=== PATIENT | male | born 1970 | race Caucasian/White ===

== ENCOUNTER 2016-11-04 16:46 | Emergency (ER) | payer SELFPAY ==
[2016-11-04] MEDS ORDERED: Aspirin Low Dose CHEW TAB* 81 MG PO ONE (17:50)
[2016-11-04 18:46] LABS: Hematocrit 45 % (42-52); Hemoglobin 14.9 g/dl (14.0-18.0); Mean Corpuscular HGB Conc 33 g/dl (31-36); Mean Corpuscular Hemoglobin 23 pg (27-31); Mean Corpuscular Volume 71 fL (80-94); Mean Platelet Volume 8 um3 (7.4-10.4); Red Blood Count 6.38 10^6/ul (4.0-5.4); Red Cell Distribution Width 16 % (10.5-15); White Blood Count 7.3 10^3/ul (3.5-10.8)
[2016-11-04 18:48] LABS: Add Diff/Slide Review? Slide Review Added; Comments Flag Yes
[2016-11-04 19:06] LABS: ALT 34 U/L (7-52); Albumin 4.6 g/dL (3.2-5.2); Alkaline Phosphatase 47 U/L (34-104); Blood Urea Nitrogen 20 mg/dL (6-24); CO2 Carbon Dioxide 30 mmol/L (22-32); Calcium 9.8 mg/dL (8.6-10.3); Chloride 102 mmol/L (101-111); EGFR African American 97.8 (>60); Globulin 2.7 g/dL (2-4); Glucose 100 mg/dL (70-100); Sodium 138 mmol/L (133-145); Total Protein 7.3 g/dL (6.4-8.9)
[2016-11-04 19:33] LABS: Anion Gap 6 mmol/L (2-11)
[2016-11-04] MEDS ORDERED: Cyclobenzaprine TAB* 10 MG PO ONE (22:56)
--- NOTE | 2016-11-04 22:59 | ED ---
Golden Arriola Nikita, scribed for Jah Ryan MD on 11/04/16 at 2033 . Throat Pain/Nasal Congestion - HPI Summary HPI Summary: This patient is a 46 year old M presenting to ED with a chief complaint of R- sided neck pain since 2 weeks ago. 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 The next morning, he could hardly move it. Pt reports it may be a pinched nerve. The CC is described as radiating to back, R shoulder blade and R arm and fingers (tingling, spasms). The patient rates the pain 7/10 in severity. Symptoms aggravated by movement. Symptoms alleviated by rest and salt bath. - History of Current Complaint Chief Complaint: EDNeckComplaint Time Seen by Provider: 11/04/16 20:20 Hx Obtained From: Patient Onset/Duration: Sudden Onset - 2 weeks ago, Lasting Weeks, Still Present Severity: Moderate Associated Signs And Symptoms: Negative: Negative - R-sided neck pain, radiating to back, R shoulder blade and R arm and fingers (tingling, spasms) - Allergies/Home Medications Allergies/Adverse Reactions: Allergies Allergy/AdvReac Type Severity Reaction Status Date / Time No Known Allergies Allergy Verified 11/04/16 16:49 PMH/Surg Hx/FS Hx/Imm Hx Endocrine/Hematology History: Denies: Hx Diabetes Cardiovascular History: Denies: Hx Coronary Artery Disease, Hx Hypertension Infectious Disease History: No Infectious Disease History: Denies: Traveled Outside the [place] in Last 30 Days - Family History Known Family History: Negative: Cardiac Disease, Hypertension, Diabetes - Social History Alcohol Use: Occasionally Alcohol Amount: 4 beers every couple of weeks Hx Substance Use: No Hx Tobacco Use: No Review of Systems Positive: Other - R-sided neck pain Positive: Other - R-sided neck pain radiates to back, R shoulder blade and R arm and fingers (tingling, spasms) All Other Systems Reviewed And Are Negative: Yes Physical Exam - Summary Physical Exam Summary: General: well-appearing, no pain distress Skin: warm, color reflects adequate perfusion, dry Head: normal Eyes: EOMI, FATIMAH ENT: normal Neck: supple, tender in the neck laterally to the right side at level of C5-C7 Respiratory: CTA, breath sounds present Cardiovascular: RRR, good distal pulses, good capillary refill Abdomen: soft, nontender Bowel: present Musculoskeletal: normal, strength/ROM intact Neurological: normal, sensory/motor intact, A&O x3 Psychological: affect/mood appropriate Triage Information Reviewed: Yes Vital Signs On Initial Exam: Initial Vitals Temp Pulse Resp BP Pulse Ox 98 F 95 16 173/105 98 11/04/16 16:47 11/04/16 16:47 11/04/16 16:47 11/04/16 16:47 11/04/16 16:47 Vital Signs Reviewed: Yes Diagnostics - Vital Signs Vital Signs Temp Pulse Resp BP Pulse Ox 11/04/16 19:40 97 11/04/16 16:47 98 F 95 16 173/105 98 - Laboratory Lab Results: Lab Results 11/04/16 11/04/16 11/04/16 Range/Units 18:35 18:35 18:35 WBC 7.3 (3.5-10.8) 10^3/ul RBC 6.38 H (4.0-5.4) 10^6/ul Hgb 14.9 (14.0-18.0) g/dl Hct 45 (42-52) % MCV 71 L (80-94) fL MCH 23 L (27-31) pg MCHC 33 (31-36) g/dl RDW 16 H (10.5-15) % Plt Count 260 (150-450) 10^3/ul MPV 8 (7.4-10.4) um3 Neut % (Auto) 59.3 (38-83) % Lymph % (Auto) 28.5 (25-47) % [place] % (Auto) 6.2 (1-9) % Eos % (Auto) 5.0 (0-6) % Baso % (Auto) 1.0 (0-2) % Absolute Neuts (auto) 4.3 (1.5-7.7) 10^3/ul Absolute Lymphs (auto) 2.1 (1.0-4.8) 10^3/ul Absolute Monos (auto) 0.4 (0-0.8) 10^3/ul Absolute Eos (auto) 0.4 (0-0.6) 10^3/ul Absolute Basos (auto) 0.1 (0-0.2) 10^3/ul Absolute Nucleated RBC 0.01 10^3/ul Nucleated RBC % 0.1 Sodium 138 (133-145) mmol/L Potassium TNP Chloride 102 (101-111) mmol/L Carbon Dioxide 30 (22-32) mmol/L Anion Gap 6 (2-11) mmol/L BUN 20 (6-24) mg/dL Creatinine 1.05 (0.67-1.17) mg/dL Est GFR ( Amer) 97.8 (>60) Est GFR (Non-Af Amer) 76.0 (>60) BUN/Creatinine Ratio 19.0 (8-20) Glucose 100 (70-100) mg/dL Lactic Acid 1.2 (0.5-2.0) mmol/L Calcium 9.8 (8.6-10.3) mg/dL Total Bilirubin 0.40 (0.2-1.0) mg/dL AST TNP ALT 34 (7-52) U/L Alkaline Phosphatase 47 (34-104) U/L Troponin I 0.00 (<0.04) ng/mL Total Protein 7.3 (6.4-8.9) g/dL Albumin 4.6 (3.2-5.2) g/dL Globulin 2.7 (2-4) g/dL Albumin/Globulin Ratio 1.7 (1-3) Result Diagrams: 11/04/16 18:35 11/04/16 21:27 Lab Statement: Any lab studies that have been ordered have been reviewed, and results considered in the medical decision making process. - CT Neck/C-spine CT Interpretation Completed By: Radiologist - Mild to moderate degenerative disc disease and degenerative joint disease of the uncovertebral joints and facets throughout the cervical spine with mild multilevel spinal canal narrowing and mild flattening and deformity of the ventral aspect of the cervical cord at the C3-4, C5-6 and C6-7 levels with mild bilateral C3-4 neural foraminal narrowing and mild to moderate C5-6 and C6-7 Neural foraminal narrowing. If clinically indicated followup outpatient MRI cervical spine may be needed. ED physician has reviewed this radiology report and agrees. - EKG 1803 Cardiac Rate: NL - 63 bpm EKG Interpretation: Sinus arrhythmia, incomplete RBBB, probable normal early repolarization EENT Course/Dx - Course Assessment/Plan: This patient is a 46 year old M presenting to ED with a chief complaint of R-sided neck pain since 2 weeks ago. 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 The next morning, he could hardly move it. Pt reports it may be a pinched nerve. The CC is described as radiating to back, R shoulder blade and R arm and fingers (tingling, spasms). The patient rates the pain 7/10 in severity. Symptoms aggravated by movement. Symptoms alleviated by rest and salt bath. EKG reveals sinus arrhythmia, incomplete RBBB, and ST elevation: probable normal early repolarization pattern. C-spine CT reveals mild to moderate degenerative disc disease and degenerative joint disease of the uncovertebral joints and facets throughout the cervical spine with mild multilevel spinal canal narrowing and mild flattening and deformity of the ventral aspect of the cervical cord at the C3-4, C5-6 and C6-7 levels with mild bilateral C3-4 neural foraminal narrowing and mild to moderate C5-6 and C6-7 Neural foraminal narrowing. If clinically indicated followup outpatient MRI cervical spine may be needed. ED physician has reviewed this radiology report and agrees. In the ED course, pt was given ASA. Medications reviewed. BP noted and advised to follow up with PCP. DISCUSSED RESULTS WITH PATIENT. NO NEUROLOGIC DEFICIT AT THIS TIME. F/U PMD; RETURN IF WORSE. - Diagnoses Provider Diagnoses: Cervical radiculopathy, Neck pain, Degenerative cervical disc, Arthritis of neck Discharge - Discharge Plan Condition: Stable Disposition: HOME Prescriptions: Cyclobenzaprine TAB* [Flexeril 10 MG TAB*] 10 mg PO TID PRN #15 tab MDD 3 PRN Reason: Pain traMADol TAB* [Ultram*] 50 mg PO Q6HR PRN #20 tab MDD 4 PRN Reason: Pain Patient Education Materials: Cervical Disc Herniation (ED), Cervical Radiculopathy (ED), Acute Neck Pain (ED) Forms: *Work Release Referrals: Non Staff,Doctor [Primary Care Provider] - Additional Instructions: FOLLOW UP WITH YOUR DOCTOR. RETURN TO THE EMERGENCY DEPARTMENT FOR ANY WORSENING OF YOUR CONDITION; WEAKNESS , NUMBNESS, PAIN OR QUESTIONS OR CONCERNS. The documentation as recorded by the Golden taylor Nikita accurately reflects the service I personally performed and the decisions made by me, Jah Ryan MD.
[2016-11-04 23:12] VITALS: BP 168/79
--- NOTE | 2016-11-05 07:37 | RAD ---
HISTORY: Right lower neck pain radiating to right scapula and arm COMPARISONS: None TECHNIQUE: Multiple contiguous axial CT scans were obtained of the cervical spine without intravenous contrast, with coronal and sagittal multiplanar reformations. FINDINGS: BRAIN: The visualized brain is unremarkable CENTRAL CANAL: Evaluation of the central canal is limited on CT technique; however, there is no obvious canalicular mass or epidural hemorrhage. ALIGNMENT: The alignment is normal, without subluxation or dislocation. VERTEBRAL BODIES: There is mild anterolateral marginal osteophyte formation. JOINTS: There is facet and uncovertebral osteoarthritis. MUSCULATURE: Unremarkable INTERVERTEBRAL DISCS: There is diffuse loss of intervertebral disc height. AXIAL IMAGES: C2-C3: There is no osseous neural foraminal narrowing or central canal stenosis. C3-C4: There is bilateral uncovertebral hypertrophy. There is mild left neural foraminal narrowing. There is no osseous central canal stenosis. C4-C5: There is no osseous neural foraminal narrowing or central canal stenosis. C5-C6: There is bilateral uncovertebral hypertrophy. There is moderate left neural foraminal narrowing. There is no osseous central canal stenosis. C6-C7: There is bilateral uncovertebral hypertrophy. There is moderate bilateral neural foraminal narrowing. There is no osseous central canal stenosis. C7-T1: There is no osseous neural foraminal narrowing or central canal stenosis. SOFT TISSUES: The visualized soft tissues of the neck are unremarkable. The prevertebral fat stripe is preserved. OTHER: None. IMPRESSION: DEGENERATIVE DISC DISEASE AND OSTEOARTHRITIS MOST PRONOUNCED AT C6-C7. THERE IS MULTILEVEL NEURAL FORAMINAL NARROWING DESCRIBED ABOVE. THERE IS NO SIGNIFICANT CENTRAL CANAL STENOSIS.
== END 2016-11-04 23:11 | disposition home or self-care (01) ==
LOC: ED 16:46
DX: M54.12 Radiculopathy, cervical region (principal); M50.30 Other cervical disc degeneration, unspecified cervical region; M46.92 Unspecified inflammatory spondylopathy, cervical region
CPT/HCPCS: 36415; 72125; 80053; 83605; 84484; 85025; 93005; 99283; A9270-GY